=== PATIENT | female | born 1930 | race Caucasian/White ===

== ENCOUNTER → 2017-12-17 | Outpatient (CLI) | payer OTHER ==
[~2017-12-17] MED LIST: ACCUNEB SO1.25 MG/1 INH; ASPIR 8181 M1 PO; CALCIUM 500 +1 EAC5 PO; CEFUROXIME500 MG PO; LEVOTHYROXIN0.075 MG PO; LOPRESSOR25 PO; METFORMIN HCL500 MG PO; MICROZIDE12.5 MG PO; MULTIVITAMINS1 EAC7 PO; NORCO 5-325 TA1 EAC1 PO; NORVASC2.5 MG PO; TYLENOL325 MG PO; ULTRA-LIGHT RO1 EACH MC; VITAMIN D22000 UNIT PO; ZPAK PO
== END ==
LOC: M.RAD 09:56
DX: R13.12 Dysphagia, oropharyngeal phase (principal); R49.0 Dysphonia